=== PATIENT | female | born 1975 | race Caucasian/White ===

== ENCOUNTER 2018-07-02 18:37 | Emergency (ER) | payer OTHER ==
[~2018-07-02] VITALS: Ht 170.2 cm; Wt 83.9 kg
[~2018-07-02 18:37] MED LIST: ASPIRIN325; ASPRIMOX 325 M325 MG; FISH OIL 1,001000 M1; FISHOIL; LISINOPRIL; MULTIVITAMINS; MULTIVITAMINS1 EAC7; NAPROSYN250 MG PO; NORCO 5-325 TA1 EACH PO; PRAVACHOL; PRAVASTATIN; PREVASTATIN; PRINIVIL5 MG; ZPAK PO
[2018-07-02] MEDS ORDERED: ASPIR 8181 MG PO (18:51)
[2018-07-02] MEDS ORDERED: LOVASTATIN 20 M20 MG PO (18:51)
[2018-07-02 20:35] LABS: ABSOLUTE EOSINOPHILS 0.1 thou/uL (0.0-0.7); ABSOLUTE LYMPHOCYTES 1.8 thou/uL (0.8-5.3); ABSOLUTE MONOCYTES 0.6 thou/uL (0.0-1.2); ABSOLUTE NEUTROPHILS 7.9 thou/uL (1.6-8.1); BASOPHILS 0.3 %; EOSINOPHILS 0.6 %; HEMATOCRIT 41.5 % (37.0-47.0); HEMOGLOBIN 14.1 gm/dL (12.0-15.0); LYMPHOCYTES 17.3 %; MCH 31.2 pg (26.0-34.0); MCHC 34.1 g/dL (28.0-37.0); MCV 91.7 fL (80.0-100.0); MONOCYTES 6.1 %; MPV 9.2 fl. (7.2-11.1); NUCLEATED RBCS 0 /100WBC; PLATELET COUNT* 188 thou/uL (150-400); POLYS 75.7 %; RBC 4.53 mil/uL (4.20-5.00); RDW-CV 12.5 % (10.5-14.5); WBC 10.5 thou/uL (4.0-11.0)
[2018-07-02 20:45] LABS: APTT 24.9 Seconds (25.0-31.3); PROTIME 10.2 Seconds (9.20-11.50)
[2018-07-02 20:53] LABS: CALCIUM 8.6 mg/dL (8.5-10.1); CREATININE 0.9 mg/dL (0.6-1.3); POTASSIUM 3.8 mmol/L (3.5-5.1)
[2018-07-02 21:05] LABS: ALBUMIN 3.5 g/dL (3.4-5.0); TOTAL BILIRUBIN 0.2 mg/dL (<0.1-1.0); TOTAL PROTEIN 7.2 g/dL (6.4-8.2)
[2018-07-02] MEDS ORDERED: MEDROXYPROGESTE10 MG PO (23:17)
[2018-07-02 23:34] VITALS: BP 132/65
== END 2018-07-02 23:35 | disposition home or self-care (01) ==
LOC: M.ERS 18:37
PROVIDERS: Nurse Practitioner Family
DX: N83.291 Other ovarian cyst, right side (principal); D25.1 Intramural leiomyoma of uterus; F41.0 Panic disorder [episodic paroxysmal anxiety]; Z90.49 Acquired absence of other specified parts of digestive tract; Z88.6 Allergy status to analgesic agent

== ENCOUNTER 2019-11-30 12:24 | Inpatient (IN) | payer OTHER ==
[~2019-11-30] VITALS: Ht 170.2 cm; Wt 69.9 kg
[~2019-11-30 12:24] MED LIST changes: +ASPIR 8181 MG PO; +LOVASTATIN 20 M20 MG PO; +MEDROXYPROGESTE10 MG PO
[2019-11-30 12:37] VITALS: BP 150/84
[2019-11-30 13:00] LABS: ABSOLUTE EOSINOPHILS 0.1 thou/uL (0.0-0.7); ABSOLUTE LYMPHOCYTES 1.4 thou/uL (0.8-5.3); ABSOLUTE MONOCYTES 0.5 thou/uL (0.0-1.2); ABSOLUTE NEUTROPHILS 7.6 thou/uL (1.6-8.1); BASOPHILS 0.4 %; EOSINOPHILS 0.6 %; HEMATOCRIT 44.3 % (37.0-47.0); HEMOGLOBIN 15.4 gm/dL (12.0-15.0); LYMPHOCYTES 14.8 %; MCH 31.9 pg (26.0-34.0); MCHC 34.7 g/dL (28.0-37.0); MONOCYTES 5.2 %; NUCLEATED RBCS 0 /100WBC; PLATELET COUNT* 182 thou/uL (150-400); RBC 4.81 mil/uL (4.20-5.00); RDW-CV 12.9 % (10.5-14.5); WBC 9.7 thou/uL (4.0-11.0)
[2019-11-30 13:09] LABS: CALCIUM 8.3 mg/dL (8.5-10.1); CREATININE 0.9 mg/dL (0.6-1.3); POTASSIUM 3.9 mmol/L (3.5-5.1)
[2019-11-30 13:20] LABS: ALBUMIN 3.3 g/dL (3.4-5.0); TOTAL BILIRUBIN 0.4 mg/dL (<0.1-1.0); TOTAL PROTEIN 7.1 g/dL (6.4-8.2)
[2019-11-30 18:17] VITALS: BP 126/86
[2019-11-30 19:50] VITALS: BP 103/62
[2019-12-01] VITALS (15 sets, daily range): BP systolic 99–143; BP diastolic 57–70
[2019-12-01 05:30] LABS: HEMATOCRIT 39.9 % (37.0-47.0); HEMOGLOBIN 13.6 gm/dL (12.0-15.0); MCH 31.9 pg (26.0-34.0); MCV 93.8 fL (80.0-100.0); MPV 9.2 fl. (7.2-11.1); RBC 4.26 mil/uL (4.20-5.00); RDW-CV 13.1 % (10.5-14.5)
[2019-12-01 05:34] LABS: ANION GAP 7 mmol/L (7-16); BUN 16 mg/dL (7-18); CHLORIDE 109 mmol/L (98-107); CO2 25 mmol/L (21-32); CREATININE 0.9 mg/dL (0.6-1.3); GLUCOSE 83 mg/dL (70-99); POTASSIUM 3.8 mmol/L (3.5-5.1); SODIUM 141 mmol/L (136-145)
[2019-12-01 05:44] LABS: CHOLESTEROL 130 mg/dL (<200); HDL CHOLESTEROL 49 mg/dL (>40); LDL CHOLESTEROL 65 mg/dL (<100); MAGNESIUM 2.1 mg/dL (1.8-2.4); TC:HDL 2.7 Ratio (Not establshd); TRIGLYCERIDE 82 mg/dL (<150); VLDL 16 mg/dL (<40)
[2019-12-01 05:48] LABS: SERUM ASSESSMENT Clear
--- NOTE | 2019-12-01 07:38 | NUR ---
PT CARE ASSUMED AT 1930. SAT MAINTAINED IN O2. ALERT AND ORIENTED X4. CALL LIGHT WITHIN REACH AND BED IN LOW POSITION. CALL LIGHT WITHIN REACH AND BED IN LOW POSITION. HOURLY ROUNDING DONE FOR PT SAFETY.
--- NOTE | 2019-12-01 12:13 | EKG ---
[place] [address] ELECTROCARDIOGRAM REPORT Name: MASOUD KRUEGER Room: [place] [address] ADM IN [facility].#: [id number] Admission: 11/30/19 Attend Phys: Remy Sewell, Discharge: Date of : 73 Date of Service: 11/30/19 1233 Report #: [id number] THIS REPORT FOR: //name// [facility] ED Test Date: 2019-11-30 Test Time: 12:33:48 Pat Name: MASOUD KRUEGER Department: Room: [facility] Gender: F Licensed Nuclear Operator: BERNARDO : 1975 Requested By: Summer Coates Order Number: [id number] MD: Celestino Camp Measurements Intervals [place] Rate: 70 P: 67 [place]: 140 QRS: 52 QRSD: 100 T: 61 QT: 392 QTc: 423 Interpretive Statements Sinus rhythm Low voltage, precordial leads Consider anterolateral infarct Compared to ECG 07/12/2011 09:25:51 Low QRS voltage now present Sinus tachycardia no longer present Electronically Signed On 12-01-2019 12:11:21 CDT by Celestino Camp [email or web address] <ELECTRONICALLY SIGNED> By: Celestino Camp MD, [facility] 12/01/19 1211 1233 1233 Celestino Camp MD, [facility] /EPI
--- NOTE | 2019-12-01 12:15 | EKG ---
[place] [address] ELECTROCARDIOGRAM REPORT Name: MASOUD KRUEGER Room: [place] [address] ADM IN [facility]#: [id number] Admission: 11/30/19 Attend Phys: Remy Sewell, Discharge: Date of : 73 Date of Service: 11/30/19 1534 Report #: [id number] THIS REPORT FOR: //name// [facility] ED Test Date: 2019-11-30 Test Time: 15:34:32 Pat Name: MASOUD KRUEGER Department: Room: [facility] Gender: F Sheriff: CRISTIAN : 1975 Requested By: Summer Coates Order Number: [id number] MD: Celestino Camp Measurements Intervals [place] Rate: 52 P: 69 [place]: 152 QRS: 64 QRSD: 106 T: 64 QT: 468 QTc: 436 Interpretive Statements Sinus bradycardia Anterior infarct, old Electronically Signed On 12-01-2019 12:12:54 CDT by Celestino Camp [email or web address] <ELECTRONICALLY SIGNED> By: Celestino Camp MD, [facility] 12/01/19 1212 1534 1534 Celestino Camp MD, [facility] /EPI
--- NOTE | 2019-12-01 13:39 | CARD ---
[address] [address] CARDIAC CATH REPORT Name: MASOUD KRUEGER Room: [address] IN [facility]#: [id number] Admission: 11/30/19 Attend Phys: Remy Sewell MD Discharge: Date of : 73 Report #: [id number] THIS REPORT FOR: //name// cc: Renny Chan DO Renny Chan DO ~ APPROVED REPORT Study performed: 12/01/2019 09:46:30 Patient Details Patient Status: In-Patient Room #: 227 The patient is a 43 year-old female Event Personnel Sam Caballero RTR Monitor, Aby Patel RTR ScrubOscar Sujita RN RN, Celestino Camp Exhibitions And Collections Manager Procedures Performed Left Heart Cath w/or w/o Coronaries [id number] [facility] w/wo Plasty Single RCA [id number] Indication Abnormal ECG, Non-STEMI , Chest pain Risk Factors Hypercholesterolemia, Tobacco History () Previous Procedures/Diagnoses Previous PCI, Previous OH Admission/Lab Medications/Medications given during procedure Glycoprotein IllbIlla Inhibitors, Heparin Unfract., Fentanyl IV 25 mcg, Midazolam (Versed) IV 2 mg, Lidocaine Subcut 5 ml, Nitroglycerin IA 200 mcg, Verapamil IA 2.5 mg, Heparin IV 5000 units, Midazolam (Versed) IV 1 mg, Aggrastat Unknown 7 ml, Effient PO 60 mg Procedure Narrative The patient was brought urgently to the Cardiac Catheterization Laboratory and was prepped and draped in a sterile manner. The right wrist was infiltrated with 2% Lidocaine subcutaneous anesthesia. A Slender Glidesheath sheath was inserted into the right radial artery. Coronary angiography was performed using coronary diagnostic catheters. The right coronary system was accessed and visualized with a Diagnostic JR4 6Fr catheter. The left [place] [address] CARDIAC CATH REPORT Name: MASOUD KRUEGER Room: [address]#: [id number] Admission: 11/30/19 Attend Phys: Remy Sewell MD Discharge: Date of : 73 Report #: [id number] and visualized with a Diagnostic JL4 6Fr catheter. The left ventricle was accessed and visualized with a Diagnostic Pigtail St catheter. Left ventricular/Aortic Valve gradient assessed via catheter pullback. Left ventriculogram was performed in MURCIA projection. Closure device was deployed with a 6 Fr vascband. The patient tolerated the procedure well and there were no complications associated with the procedure. There was no hematoma. Intraoperative Conscious Sedation Sedation start time: 1055 Case end Time: 1138 Fentanyl 50 mcg Versed 3 mg Fluoro Time: 5.8 minutes Dose: DAP 33751 cGycm2 710.24 mGy Contrast Type and Amount: Omnipaque 120 ml Coronary Angiography The patient's coronary anatomy is right dominant. Diagnostic Cath Left Main 0% stenosis LAD stent in mid LAD had 40% restenosis. Apical LAD was a small vessel with a small lumen Circumflex 0% stenosis OM3 stent noted with 0% restenosis Right Coronary 100% proximal occlusion with thrombus noted. Filled retrograd by collaterals from the left coronary artery. Left Ventriculography The left ventricular ejection fraction is estimated to be 30-35%. Left ventricular wall motion abnormalities are present. There is no mitral insufficiency. mild hypokinesis noted of the inferior wall, and akinesis noted of the distal anteroapical wall Hemodynamics The aortic pressure is 101/63 mmHg with a mean of 79 mmHg. The left ventricular pressure is 106/5 mmHg with a mean of mmHg. The left ventricular end diastolic pressure is 9 mmHg. There was no gradient across the aortic valve upon pullback. Pullback from the left ventricle to the aorta revealed no gradient across the aortic valve. PCI Technique Lesion Anticoagulation was achieved with Heparin. bolus of iv aggrastat given Percutaneous coronary [place] [address] CARDIAC CATH REPORT Name: MASOUD KRUEGER Room: [address] IN [facility]#: [id number] Admission: 11/30/19 Attend Phys: Remy Sewell MD Discharge: Date of : 73 Report #: [id number] proximal right coronary artery. The lesion stenosis prior to intervention was 100% with ANNE 0 flow. A 6FR JCR 4 100CM Guide Catheter was used to engage the Right ostium. A BMW 190cm Interventional Guidewire was used to cross the lesion. BALLOON DILATION A Balloon catheter Euphora SC 2.5x10 was inserted and inflated up to 10.00atm for 8seconds. Repeat angiography revealed the following post-dilatation results: 50% stenosis. Additional Inflation: 18.00atm for 13seconds. STENT DEPLOYMENT A drug-eluting stent Clinton RX Stent 3.0X18mm was inserted and inflated up to 15.00atm for 19seconds. Repeat angiography revealed the following post-stent deployment results: 0% stenosis. Additional Inflation: 18.00atm for 16seconds. Final angiography reveals 0 % stenosis with ANNE 3 flow. Conclusion 1. 40% restenosis noted of stent in the mid LAD, and 0% restenosis of stent in the 3rd marginal branch of the circumflex. 2. 100% recent occlusion of the proximal rca, and filled retrograde by collaterals from the left coronary artery. 3. LVEF 30-35% 4. successful placement of a drug eluting stent in the proximal rca Recommendations Cardiac Rehabilitation Referral Aggressive Medical Therapy Medications Administered Prasugrel <ELECTRONICALLY SIGNED> By: Celestino Camp MD, [facility] 12/01/19 1337 1337 1337Daana Camp MD, FAC /INF
--- NOTE | 2019-12-01 15:53 | NUR ---
ASSUMED CARE OF PATIENT THIS AM AT 0730. PATIENT IS ALERT AND ORIENTED X 4. SHE DENIES CHEST PAIN AND SOA. HEPARIN GTT WAS INFUSING FROM PYROTECHNIC MIXER. DR ZULETA IN TO ROUND AND CATH ORDERS WERE WRITTEN. IV FLUIDS STARTEDCONSENT SIGNED FOR CARDIAC CATH. PATIENT TAKEN TO THE RECOVERY AUDITOR PER BED. PATIENT RETURNED TO ROOM AT 1215. TELE MONITOR RESUMED. TELE SHOWS SR TO SB. POST CATH ASSESSMENTS WITH VITAL SIGNS DONE. DIET RESUMED. PATIENT C/O A LE THIS AFTERNOON. SHE WAS GIVEN TYLENOL PO X 1. PATIENT IS RESTING AT THIS TIME. WILL CONTINUE TO MONITOR.
[2019-12-01 21:04] LABS: TROPONIN-I LEVEL 9.91 ng/mL (<0.06)
[2019-12-02 00:10] VITALS: BP 96/51
[2019-12-02 04:05] VITALS: BP 103/57
--- NOTE | 2019-12-02 05:00 | NUR ---
PT CARE ASSUMED AT 1930. SAT MAINTAINED IN RA. ALERT AND ORIENTED X4. C/O PAIN, MEDICATION GIVEN PER EMAR. CALL LIGHT WITHIN REACH AND BED IN LOW POSITION. HOURLY ROUNDING DONE FOR PT SAFETY.
[2019-12-02 05:06] LABS: HEMATOCRIT 39.9 % (37.0-47.0); HEMOGLOBIN 13.7 gm/dL (12.0-15.0); MCH 31.8 pg (26.0-34.0); MCHC 34.3 g/dL (28.0-37.0); MCV 92.9 fL (80.0-100.0); MPV 8.9 fl. (7.2-11.1); RBC 4.29 mil/uL (4.20-5.00); RDW-CV 12.7 % (10.5-14.5)
[2019-12-02 05:30] LABS: CALCIUM 7.9 mg/dL (8.5-10.1); CREATININE 0.8 mg/dL (0.6-1.3); POTASSIUM 4.1 mmol/L (3.5-5.1)
[2019-12-02 05:34] LABS: TROPONIN-I LEVEL 2.59 ng/mL (<0.06)
[2019-12-02 08:00] VITALS: BP 96/43
[2019-12-02 11:36] VITALS: BP 96/43
[2019-12-02] MEDS ORDERED: COZAAR 25 MG TA25 M1 PO (11:40)
[2019-12-02] MEDS ORDERED: LIPITOR40 MG PO (11:42)
[2019-12-02] MEDS ORDERED: EFFIENT10 MG PO (11:43)
[2019-12-02] MEDS ORDERED: NITROGLYCERIN0.4 MG SUBLING (11:44)
[2019-12-02 11:50] VITALS: BP 96/43
--- NOTE | 2019-12-02 12:51 | CON ---
[address] [address] CONSULTATION Name: MASOUD KRUEGER Room: [address] IN [facility]#: [id number] Admission: 11/30/19 Attend Phys: Remy Sewell MD Discharge: Date of : 73 Report #: [id number] THIS REPORT FOR: //name// cc: Renny Chan Bradley L. DO ~ THIS REPORT FOR: //name// CC: Renny Sewell DATE OF SERVICE: 12/01/2019 CARDIOLOGY CONSULTATION HISTORY OF PRESENT ILLNESS: The patient is a 43-year-old white female who I was asked to see in the hospital today after she had evidenced of a non-STEMI. The patient initially presented in 2008 with acute coronary syndrome. I placed 2 coronary stents at that time. She has done well since that time. She apparently had a stress test years ago. Recently when she exerts herself, she does develop a discomfort in her chest that goes away. However, yesterday she is at work after walking, she felt a discomfort in her chest, went into her jaw, she became short of breath. The pain persisted. Her brought her to the Emergency Room. She was given aspirin and nitroglycerin. The pain eventually resolved. I was asked to see her for further evaluation and treatment. She denies exertional dyspnea. She does note occasional palpitation, no syncope. She has had no recent fever, cough, blood in stool, trauma to her chest. She denied the pain being related to food. The pain was worse if she took a deep breath. PAST MEDICAL HISTORY: She is on no surgical procedure. Her last menstrual period was last month. She has a history of hyperlipidemia. No history of diabetes or hypertension. CURRENT MEDICATIONS: Include lisinopril, lovastatin, aspirin, vitamins. ALLERGIES: SHE HAS PREVIOUS REACTION TO MORPHINE. FAMILY HISTORY: Father had stent. SOCIAL HISTORY: She is . She and her live in [facility]. She quit smoking in 2008. No alcohol abuse. REVIEW OF SYSTEMS: She has a history of obesity, previously weighed 260 pounds, she currently weighs 150 pounds. She has lost a lot of weight on dieting. No history of stroke, asthma, liver disease, peptic ulcer disease, kidney disease or cancer. She has a history of herpes infection of the [place] [address] CONSULTATION Name: MASOUD KRUEGER Marissa Room: [address] IN [facility]#: [id number] Admission: 11/30/19 Attend Phys: Remy Sewell MD Discharge: Date of : 73 Report #: [id number] depression as a child and saw a psychiatrist. PHYSICAL EXAMINATION: GENERAL: Revealed a middle-aged female, who appeared in no distress. VITAL SIGNS: She had a blood pressure of 140/70, pulse 60. She is afebrile. HEENT: She was anicteric. Conjunctivae are pink. Mucous membranes moist. NECK: Veins nondistended. No carotid bruits. Neck supple. CHEST: Clear to auscultation. CARDIAC: Regular rate and rhythm, no murmur. ABDOMEN: Soft. EXTREMITIES: Had no edema. Posterior tibial pulse 2+ bilaterally. SKIN: Cool and dry. NEUROLOGIC: Nonfocal. IMAGING: Her ECG shows a sinus bradycardia, evidence of previous anterior infarction. LABORATORY DATA: Sodium 141, potassium 3.8, BUN 16, creatinine 0.9, glucose 83. Liver function studies were normal. Her troponin 0.06 on admission, this morning, it is 8.31. BNP 722. Cholesterol 130, triglyceride 82, HDL 49, LDL 65. TSH in 2019 was 2.1. Her white blood cell count is 7.0, hemoglobin 13.6. Her chest x-ray on admission showed normal heart size, clear lung chatterjee. IMPRESSION AND RECOMMENDATIONS: 1. Non-ST elevation myocardial infarction. Recommend cardiac catheterization. 2. Previous stent. The patient is on an aspirin a day. 3. History of cardiomyopathy. The patient is on an MAGNUS inhibitor now. 4. Hyperlipidemia. The patient is on a statin drug. 5. Previous tobacco abuse. The patient quit smoking in 2008. <ELECTRONICALLY SIGNED> By: Celestino Camp MD, [facility] 12/02/19 1251 0921 1018Daana Camp MD, FAC /nt
--- NOTE | 2019-12-02 13:32 | NUR ---
VSS, SB ON TELE, ROOM AIR, UP AD CASSIE, RIGHT RADIAL SITE- DRESSING CLEAN, DRY & INTACT, HOURLY ROUNDING PERFORMED, POSSESSIONS AND CALL LIGHT WITHIN REACH. REC DISCHARGE ORDERS, REVIEWED WITH PATIENT, TELE MONITOR AND IV REMOVED WITHOUT COMPLICATION, SCRIPTS AND CARE NOTES GIVEN, PATIENT TAKEN IN WHEELCHAIR TO FRONT DOOR BY NURSING STAFF. PICKED UP IN FAMILY CAR BY DAUGHTER.
--- NOTE | 2019-12-02 15:43 | EKG ---
[place] [address] ELECTROCARDIOGRAM REPORT Name: MASOUD KRUEGER Room: [place] [address] DIS IN ..#: [id number] Admission: 11/30/19 Attend Phys: Remy Sewell, Discharge: 12/02/19 Date of : 73 Date of Service: 12/01/19 1337 Report #: [id number] THIS REPORT FOR: //name// [facility] Test Date: 2019-12-01 Test Time: 13:37:32 Pat Name: MASOUD KRUEGER Department: Room: [place] [address] Gender: F Desk Top Publisher: [facility] : 1975 Requested By: Celestino Camp Order Number: [id number] Ryan MD: Magdaleno Tang Measurements Intervals [place] Rate: 61 P: 69 [place]: 149 QRS: 84 QRSD: 108 T: 89 QT: 432 QTc: 435 Interpretive Statements Sinus rhythm Anteroseptal infarct, age indeterminate Compared to ECG 11/30/2019 15:34:32 Sinus bradycardia no longer present Myocardial infarct finding still present Electronically Signed On 12-02-2019 15:41:07 CDT by Magdaleno Tang [email or web address] <ELECTRONICALLY SIGNED> By: Mgadaleno Tang MD, [facility] 12/02/19 1541 1337 1337 Magdaleno Tang MD, [facility] /EPI
--- NOTE | 2019-12-02 15:51 | EKG ---
[place] [address] ELECTROCARDIOGRAM REPORT Name: MASOUD KRUEGER Room: [place] [address] DIS IN ..#: [id number] Admission: 11/30/19 Attend Phys: Remy Sewell, Discharge: 12/02/19 Date of : 73 Date of Service: 12/02/19 0648 Report #: [id number] THIS REPORT FOR: //name// [facility] Test Date: 2019-12-02 Test Time: 06:48:19 Pat Name: MASOUD KRUEGER Department: Room: [place] [address] Gender: F Director Music: MARIA R01 : 1975 Requested By: Celestino Camp Order Number: [id number] Ryan MD: Magdaleno Tang Measurements Intervals [place] Rate: 50 P: 66 [place]: 149 QRS: 51 QRSD: 109 T: 87 QT: 452 QTc: 413 Interpretive Statements Sinus rhythm possible anteroseptal scar Borderline low voltage, extremity leads Nonspecific T abnrm, anterolateral leads Compared to ECG 11/30/2019 15:34:32 Sinus bradycardia no longer present Electronically Signed On 12-02-2019 15:48:53 CDT by Magdaleno Tang [email or web address] <ELECTRONICALLY SIGNED> By: Magdaleno Tang MD, [facility] 12/02/19 1548 0648 0648 Magdaleno Tang MD, [facility] /EPI
== END 2019-12-02 12:28 | disposition home or self-care (01) | DRG 247 ==
LOC: M.ERS 12:24 → M.2W 16:25 → M.TBA-ER 16:25 → M.2W 18:47
PROVIDERS: Internal Medicine Cardiovascular Disease; Personal Emergency Response Attendant; ADMIT Internal Medicine; ATTEND Internal Medicine
PROC: 027034Z Dilation of Coronary Artery, One Artery with Drug-eluting Intraluminal Device, Percutaneous Approach (ICD-10-PCS; principal; 2019-12-01)
PROC: 3E033PZ Introduction of Platelet Inhibitor into Peripheral Vein, Percutaneous Approach (ICD-10-PCS; principal; 2019-12-01)
PROC: B2151ZZ Fluoroscopy of Left Heart using Low Osmolar Contrast (ICD-10-PCS; principal; 2019-12-01)
PROC: 4A023N7 Measurement of Cardiac Sampling and Pressure, Left Heart, Percutaneous Approach (ICD-10-PCS; principal; 2019-12-01)
PROC: B2111ZZ Fluoroscopy of Multiple Coronary Arteries using Low Osmolar Contrast (ICD-10-PCS; principal; 2019-12-01)
DX: I21.4 Non-ST elevation (NSTEMI) myocardial infarction (principal); I50.22 Chronic systolic (congestive) heart failure; T82.855A Stenosis of coronary artery stent, initial encounter; E78.5 Hyperlipidemia, unspecified; M54.9 Dorsalgia, unspecified; I24.9 Acute ischemic heart disease, unspecified; F12.90 Cannabis use, unspecified, uncomplicated; F41.1 Generalized anxiety disorder; I25.118 Atherosclerotic heart disease of native coronary artery with other forms of angina pectoris; G89.29 Other chronic pain; I25.5 Ischemic cardiomyopathy; I25.2 Old myocardial infarction; Z95.5 Presence of coronary angioplasty implant and graft; Z90.49 Acquired absence of other specified parts of digestive tract; Z88.5 Allergy status to narcotic agent; Z79.82 Long term (current) use of aspirin; Z79.899 Other long term (current) drug therapy; Z87.891 Personal history of nicotine dependence; Z82.49 Family history of ischemic heart disease and other diseases of the circulatory system; Y84.0 Cardiac catheterization as the cause of abnormal reaction of the patient, or of later complication, without mention of misadventure at the time of the procedure; Y92.89 Other specified places as the place of occurrence of the external cause

== ENCOUNTER 2020-01-04 09:24 | Inpatient (IN) | payer OTHER ==
[~2020-01-04] VITALS: Ht 170.2 cm; Wt 64.9 kg
[~2020-01-04 09:24] MED LIST changes: +COZAAR 25 MG TA25 M1 PO; +EFFIENT10 MG PO; +LIPITOR40 MG PO; -MULTIVITAMINS1 EAC7; +MULTIVITAMINS1 EAC7 PO; +NITROGLYCERIN0.4 MG SUBLING
[2020-01-04 09:26] VITALS: BP 132/73
[2020-01-04 09:44] LABS: ABSOLUTE EOSINOPHILS 0.1 thou/uL (0.0-0.7); ABSOLUTE LYMPHOCYTES 1.5 thou/uL (0.8-5.3); ABSOLUTE MONOCYTES 0.3 thou/uL (0.0-1.2); ABSOLUTE NEUTROPHILS 3.8 thou/uL (1.6-8.1); BASOPHILS 0.7 %; HEMATOCRIT 40.1 % (37.0-47.0); HEMOGLOBIN 13.9 gm/dL (12.0-15.0); LYMPHOCYTES 25.9 %; MCH 32.1 pg (26.0-34.0); MCHC 34.6 g/dL (28.0-37.0); MCV 92.6 fL (80.0-100.0); MONOCYTES 5.1 %; MPV 8.8 fl. (7.2-11.1); NUCLEATED RBCS 0 /100WBC; PLATELET COUNT* 193 thou/uL (150-400); POLYS 66.3 %; RBC 4.33 mil/uL (4.20-5.00); RDW-CV 12.5 % (10.5-14.5); WBC 5.7 thou/uL (4.0-11.0)
[2020-01-04 09:54] LABS: CALCIUM 8.1 mg/dL (8.5-10.1); POTASSIUM 3.6 mmol/L (3.5-5.1)
[2020-01-04 09:55] LABS: APTT 23.8 Seconds (25.0-31.3); PROTIME 10.3 Seconds (9.20-11.50)
[2020-01-04 10:08] LABS: ALBUMIN 3.1 g/dL (3.4-5.0); CK-MB MASS 1.6 ng/mL (<0.5-3.6); TOTAL BILIRUBIN 0.3 mg/dL (<0.1-1.0); TOTAL PROTEIN 6.5 g/dL (6.4-8.2)
[2020-01-04 10:51] VITALS: BP 132/70
[2020-01-04 11:00] VITALS: BP 115/66
[2020-01-04 16:32] VITALS: BP 108/59
--- NOTE | 2020-01-04 18:49 | NUR ---
PT ARRIVED ON UNIT AROUND 1100, VS CHARTED, SB ON TELE, ROOM AIR, UP AD CASSIE, ADMISSION COMPLETED, HEPARIN DRIP, HOURLY ROUNDING PERFORMED, POSSESSIONS AND CALL LIGHT WITHIN REACH.
[2020-01-04 20:00] VITALS: BP 106/44
[2020-01-05] VITALS: BP 120/66
[2020-01-05 04:32] VITALS: BP 103/56
[2020-01-05 04:42] LABS: HEMATOCRIT 37.3 % (37.0-47.0); HEMOGLOBIN 12.8 gm/dL (12.0-15.0); MCHC 34.4 g/dL (28.0-37.0); MCV 93.2 fL (80.0-100.0); MPV 9.3 fl. (7.2-11.1); RDW-CV 12.4 % (10.5-14.5); WBC 6.5 thou/uL (4.0-11.0)
--- NOTE | 2020-01-05 04:49 | NUR ---
ASSUMED CARE OF PT AFTER REPORT AT 1930. PT A&OX4. VSS. PHYSICAL ASSESSMENT COMPLETED AND CHARTED. PT ON RA. PT TRACING SR/SB/ST ON TELE. PT UPADLIB TO RESTROOM. PT DENIES ANY PAIN. CALL LIGHT WITHIN REACH.
[2020-01-05 05:03] LABS: ALBUMIN 2.7 g/dL (3.4-5.0); CREATININE 0.8 mg/dL (0.6-1.3); MAGNESIUM 2.2 mg/dL (1.8-2.4); PHOSPHORUS* 3.2 mg/dL (2.5-4.9); POTASSIUM 3.8 mmol/L (3.5-5.1)
[2020-01-05 08:16] VITALS: BP 105/58
[2020-01-05 10:07] LABS: AMP/METHAMP Negative (Negative); BARBITURATES Negative (Negative); BENZODIAZEPINES Negative (Negative); COCAINE Negative (Negative); METHADONE Negative (Negative); OPIATES Negative (Negative); PCP Negative (Negative); THC Negative (Negative)
--- NOTE | 2020-01-05 10:17 | NUR ---
ASSUMED PT CARE AT 0730, PT AOX4 AND HAS NO C/O PAIN OR SHORTNESS OF BREATH. PT CURRENTLY HAS HEPARIN DRIP RUNNING AT 1046 UNITS/HR. PT HAS SO IN ROOM W/ HER, HE WAS UPDATED ON POC. PT REFUSED PEPCID THIS AM BECAUSE SHE STATES SHE DOESN'T NEED IT. PT GOAL IS TO REMAIN FREE FROM CHEST PAIN AND COLLECT URINE SAMPLE. AM ASSESSMENT CHARTED, MEDS PER MAR, HOURLY ROUNDING OBSERVED, PT UP AD CASSIE, WILL CONTINUE POC.
--- NOTE | 2020-01-05 12:35 | EKG ---
[place] [address] ELECTROCARDIOGRAM REPORT Name: MILADMARGOREBECCAMASOUD Marissa Room: [address] ADM IN .R.#: [id number] Admission: 01/04/20 Attend Phys: Kat hays Sa Discharge: Date of : 73 Date of Service: 01/04/20 0928 Report #: [id number] THIS REPORT FOR: //name// [facility] ED Test Date: 2020-01-04 Test Time: 09:28:00 Pat Name: MASOUD KRUEGER Department: Room: [facility] Gender: F Clinical Neuropsychologist: : 1975 Requested By: Mundo Montero Order Number: [id number] MD: Jason Quintanilla Measurements Intervals [place] Rate: 69 P: 65 [place]: 146 QRS: 59 QRSD: 103 T: 63 QT: 414 QTc: 444 Interpretive Statements Sinus rhythm Borderline low voltage, extremity leads Compared to ECG 12/02/2019 06:48:19 No significant changes Electronically Signed On 01-05-2020 12:35:16 CDT by Jason Quintanilla [email or web address] <ELECTRONICALLY SIGNED> By: Jason Quintanilla MD, [facility] 01/05/20 1235 Jason Quintanilla MD, [facility] /EPI
[2020-01-05 12:58] VITALS: BP 114/68
[2020-01-05 16:47] VITALS: BP 102/64
--- NOTE | 2020-01-05 17:25 | NUR ---
NO ACUTE CHANGES THROUGHOUT SHIFT, PT HAD NO C/O PAIN OR SHORTNESS OF BREATH. HEPARIN DRIP ADJUSTED PER HEPARIN PROTOCOL AND BOLUS GIVEN, SEE CHART. PT HAD IN ROOM MOST OF DAY, PT AMBULATED THE HALLS AND WORKED W/ CARDIOLOGY ON POC, SEE NOTES. MEDS PER AUG, HOURLY ROUNDING OBSERVED, CALL LIGHT W/IN REACH, WILL CONTINUE POC.
[2020-01-05 20:00] VITALS: BP 114/68
[2020-01-06] VITALS (19 sets, daily range): BP systolic 87–129; BP diastolic 48–74
--- NOTE | 2020-01-06 08:13 | NUR ---
ASSUMED CARE OF PT AFTER REPORT AT 1930. PT A&OX4. VSS. PHYSICAL ASSESSMENT COMPLETED AND CHARTED. PT ON RA. PT TRACING SB ON TELE. PT UPADLIB TO RESTROOM. PT DENIES ANY PAIN. MAINTAINED ON HEPARIN DRIP-TITRATED PER PROTOCOL. PT INSTRUCTED NPO POST MIDNIGHT FOR CARDIAC CATH TODAY. COMMUNICATES UNDERSTANDING. CALL LIGHT WITHIN REACH.
--- NOTE | 2020-01-06 10:03 | EKG ---
[place] [address] ELECTROCARDIOGRAM REPORT Name: MASOUD KRUEGER Room: [address] ADM IN M.R.#: [id number] Admission: 01/04/20 Attend Phys: Kat hays Sa Discharge: Date of : 73 Date of Service: 01/05/20 0534 Report #: [id number] THIS REPORT FOR: //name// [facility] Test Date: 2020-01-05 Test Time: 05:34:45 Pat Name: MASOUD KRUEGER Department: Room: [address] Gender: F Decorative Greens Cutter: GIOVANNA : 1975 Requested By: Kat Warner Order Number: [id number] Ryan MD: Celestino Camp Measurements Intervals [place] Rate: 49 P: 60 [place]: 145 QRS: 51 QRSD: 99 T: 73 QT: 457 QTc: 413 Interpretive Statements Sinus bradycardia nonspecific t wave changes Low voltage, precordial leads Compared to ECG 01/04/2020 09:28:00 Sinus rhythm no longer present Electronically Signed On 01-06-2020 10:02:59 CDT by Celestino Camp [email or web address] <ELECTRONICALLY SIGNED> By: Celestino Camp MD, [facility] 01/06/20 1002 0534 0534 Celestino Camp MD, [facility] /EPI
[2020-01-06] MEDS ORDERED: ATIVAN0.5 M1 PO (12:17)
--- NOTE | 2020-01-06 13:32 | NUR ---
ASSUMED PT CARE AT 0730, PT RESTING IN BED, AOX4 AND HAS BEEN NPO SINCE MIDNIGHT. PT WORKED W/ CARDIOLOGY THIS AM AND HAS HEART CATH SCHEDULED FOR TODAY. PT UP AD CASSIE, CURRENTLY IN ROOM, PT GOAL IS TO COMPLETE HEART CATH AND WORK ON POSSIBLE DC TODAY OR TOMORROW. AM ASSESSMENT CHARTED, MEDS PER AUG, HOURLY ROUNDING OBSERVED, CALL LIGHT W/IN REACH, WILL CONTINUE POC.
--- NOTE | 2020-01-06 17:25 | CARD ---
[address] [address] CARDIAC CATH REPORT Name: MASOUD KRUEGER Room: [address] IN [facility]#: [id number] Admission: 01/04/20 Attend Phys: Kat carr [place] Discharge: Date of : 73 Report #: [id number] THIS REPORT FOR: //name// cc: Renny Chan DO Renny Chan DO ~ APPROVED REPORT Study performed: 01/06/2020 14:25:50 Patient Details Patient Status: In-Patient Room #: The patient is a 44 year-old female Event Personnel Celestino Camp Neon Sign Mechanic, Maxine Avendano RN RN, Beverly Butcher RTR Scrub, Aby Patel RTR Monitor Procedures Performed Art Access - R radial artery Left Heart Cath w/or w/o Coronaries NEAL Place w/wo Plasty Single RAMUS Inter Hemostasis with Hemoband Indication Non-STEMI , Chest pain Risk Factors Hypercholesterolemia, Coronary Artery Disease, Tobacco History () Previous Procedures/Diagnoses Previous PCI Admission/Lab Medications/Medications given during procedure Heparin Unfract., Oxygen Nasal cannula 2 l per min, 0.9% Sodium Chloride IV 125 ml per hr, Fentanyl IV 25 mcg, Midazolam (Versed) IV 2 mg, Lidocaine Subcut 5 ml, Nitroglycerin IA 200 mcg, Verapamil IA 2.5 mg, Midazolam (Versed) IV 1 mg, Heparin IV 6000 units, Heparin IV 2000 units, Nitroglycerin IC 150 mcg, Heparin IV 1000 units, Nitroglycerin IA 200 mcg, Verapamil 2.5 mg Procedure Narrative The patient was brought electively to the Cardiac Catheterization Laboratory and was prepped and draped in a sterile manner. The right wrist was infiltrated with 2% Lidocaine subcutaneous anesthesia. A Slender Glidesheath sheath was inserted into [place] [address] CARDIAC CATH REPORT Name: MASOUD KRUEGER Room: [address] IN [facility]#: [id number] Admission: 01/04/20 Attend Phys: Kat hays [place] Discharge: Date of : 73 Report #: [id number] Coronary angiography was performed using coronary diagnostic catheters. The right coronary system was accessed and visualized with a Diagnostic 6 Fr JR 4 catheter. The left coronary system was accessed and visualized with a Diagnostic 6 Fr JL 4 catheter. The left ventricle was accessed and visualized with a Diagnostic 6 Fr Pigtail catheter. Left ventricular/Aortic Valve gradient assessed via catheter pullback. Left ventriculogram was performed in MURCIA projection. Closure device was deployed with a 6 Fr Vasc-Band Reg 24cm. The patient tolerated the procedure well and there were no complications associated with the procedure. There was no hematoma. Intraoperative Conscious Sedation Sedation start time: 15:33 Case end Time: 16:20 Fentanyl 100 mcg Versed 3 mg Fluoro Time: 5.9 minutes Dose: DAP 67158 cGycm2 1054 mGy Contrast Type and Amount: Omnipaque 200 ml Coronary Angiography The patient's coronary anatomy is right dominant. Diagnostic Cath Left Main 0% stenosis LAD 30% proximal, stent in mid lad with 40% restenosis, apical lad had a narrow lumen with a 60% distal stenosis Circumflex 30% distal stenosis OM2 stent with 0% stenosis Right Coronary proximal stent with 0% stenosis Ramus small vessel with 90% proximal stenosis Left Ventriculography The left ventricular ejection fraction is estimated to be 35-40%. Left ventricular wall motion abnormalities are present. There is no mitral insufficiency. moderate hypokinesis of the inferior wall and distal anteroapical wall Hemodynamics The aortic pressure is 96/50 mmHg with a mean of 69 mmHg. The left ventricular pressure is 103/10 mmHg with a mean of mmHg. The left ventricular end diastolic pressure is 12 mmHg. There was no gradient across the aortic valve upon pullback. Pullback from the left ventricle to the aorta revealed no gradient [place] [address] CARDIAC CATH REPORT Name: MASOUD KRUEGER Room: [address] IN [facility]#: [id number] Admission: 01/04/20 Attend Phys: Kat Davidson Discharge: Date of : 73 Report #: [id number] PCI Technique Lesion Anticoagulation was achieved with Heparin. Patient was preloaded with Effient. Percutaneous coronary intervention was performed on the ramus intermedius segment. The lesion stenosis prior to intervention was 90% with ANNE 3 flow. A 6FR XB 3.0 100CM Guide Catheter was used to engage the left ostium. A IG: BMW 190cm Interventional Guidewire was used to cross the lesion. BALLOON DILATION A Balloon catheter Euphora SC 2.0x12mm was inserted and inflated up to 9.00atm for 13seconds. Repeat angiography revealed the following post-dilatation results: 30% stenosis. Additional Inflation: 9.00atm for 22seconds. STENT DEPLOYMENT A drug-eluting stent [place] RX Stent 2.0X18mm was inserted and inflated up to 8.00atm for 10seconds. Repeat angiography revealed the following post-stent deployment results: 0% stenosis. Additional Inflation: 8.00atm for 19seconds. Final angiography reveals 0 % stenosis with ANNE 3 flow. Conclusion 1. no restenosis noted of stents in the lad, circumflex, and rca 2. 90% proximal stenosis in the ramus intermedius branch 3. LVEF 35-40% 4. successful placement of a drug eluting stent in the ramus branch Recommendations Cardiac Rehabilitation Referral [facility] <ELECTRONICALLY SIGNED> By: Celestino Camp MD, FACC 01/06/20 1724 1724 1724Djarrett Camp MD, FACC /INF
--- NOTE | 2020-01-06 18:23 | NUR ---
NO ACUTE CHANGES THROUGHOUT SHIFT, PT HAD CATH PROCEDURE DONE. RT RADIAL CATH SITE C/D/I W/ PRESSURE TRANSPARENT DRESSING IN PLACE. VS CHARTED, MEDS PER AUG, PT C/O HEADACHE TREATED W/ PRN TYLENOL, CALL LIGHT W/IN REACH, WILL CONTINUE POC.
[2020-01-07] VITALS: BP 109/52
--- NOTE | 2020-01-07 03:46 | NUR ---
PT ALERT ORIENTED. R RADIAL WITH RAD STAT IN PLACE WITH 8MLS. RELEASED PER PROTOCAL. R RADIAL DRSG APPLIED. PT REMINDED NOT TO USE R ARM/WRIST. DRSG D/I. PT TOLD TO CALL NURSE FOR ANY BLEEDING. TELEMETRY SHOWS SB. LORAZEPAM GIVEN HS. WCTM
[2020-01-07 04:00] VITALS: BP 95/48
[2020-01-07 05:33] LABS: HEMATOCRIT 38.9 % (37.0-47.0); HEMOGLOBIN 13.6 gm/dL (12.0-15.0); MCH 32.1 pg (26.0-34.0); MCHC 34.8 g/dL (28.0-37.0); MPV 8.7 fl. (7.2-11.1); RBC 4.23 mil/uL (4.20-5.00); RDW-CV 12.7 % (10.5-14.5); WBC 6.8 thou/uL (4.0-11.0)
[2020-01-07 05:55] LABS: CALCIUM 8.6 mg/dL (8.5-10.1); CREATININE 0.8 mg/dL (0.6-1.3); POTASSIUM 4.1 mmol/L (3.5-5.1)
[2020-01-07 05:58] LABS: TROPONIN-I LEVEL 1.18 ng/mL (<0.06)
[2020-01-07 07:20] VITALS: BP 100/64
[2020-01-07 10:03] VITALS: BP 95/48
[2020-01-07 12:00] VITALS: BP 110/61
--- NOTE | 2020-01-07 13:18 | EKG ---
[place] [address] ELECTROCARDIOGRAM REPORT Name: MASOUD KRUEGER Room: [address] ADM IN .R.#: [id number] Admission: 01/04/20 Attend Phys: Kat hays [place] Discharge: Date of : 73 Date of Service: 01/06/20 1706 Report #: [id number] THIS REPORT FOR: //name// [facility] Test Date: 2020-01-06 Test Time: 17:06:59 Pat Name: MASOUD KRUEGER Department: Room: [address] Gender: F Outside Laborer: TAYLOR : 1975 Requested By: Celestino Camp Order Number: [id number] Ryan MD: Celestino Camp Measurements Intervals [place] Rate: 49 P: 51 WA: 143 QRS: 21 QRSD: 93 T: 54 QT: 432 QTc: 390 Interpretive Statements Sinus bradycardia nonspecific t wave changes Borderline low voltage, extremity leads Compared to ECG 01/05/2020 05:34:45 no change Electronically Signed On 01-07-2020 13:18:44 CDT by Celestino Camp [email or web address] <ELECTRONICALLY SIGNED> By: Celestino Camp MD, [facility] 01/07/20 1318 1706 1706 Celestino Camp MD, [facility] /EPI
--- NOTE | 2020-01-07 14:26 | EKG ---
[place] [address] ELECTROCARDIOGRAM REPORT Name: SILVINAREBECCAMASOUD Room: [address] DIS IN M.R.#: [id number] Admission: 01/04/20 Attend Phys: Kat hays [place] Discharge: 01/07/20 Date of : 73 Date of Service: 01/07/20 0755 Report #: [id number] THIS REPORT FOR: //name// [facility] Test Date: 2020-01-07 Test Time: 07:55:37 Pat Name: MASOUD KRUEGER Department: Room: [address] Gender: F Senior Manager Creative Services: JACQUELINE : 1975 Requested By: Celestino Camp Order Number: [id number] Ryan MD: Celestino Camp Measurements Intervals [place] Rate: 56 P: 70 [place]: 145 QRS: 55 QRSD: 100 T: 71 QT: 413 QTc: 399 Interpretive Statements Sinus bradycardia Borderline low voltage, extremity leads Compared to ECG 01/05/2020 05:34:45 no change Electronically Signed On 01-07-2020 14:26:06 CDT by Celestino Camp [email or web address] <ELECTRONICALLY SIGNED> By: Celestino Camp MD, [facility] 01/07/20 1426 0755 0755 Celestino Camp MD, [facility] /EPI
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
== END 2020-01-07 14:23 | disposition home or self-care (01) | DRG 246 ==
LOC: M.ERS 09:24 → M.TBA-ER 10:01 → M.2W 10:01
PROVIDERS: Family Medicine; Internal Medicine Cardiovascular Disease; ADMIT Family Medicine; ATTEND Family Medicine
PROC: 027034Z Dilation of Coronary Artery, One Artery with Drug-eluting Intraluminal Device, Percutaneous Approach (ICD-10-PCS; principal; 2020-01-06)
PROC: 4A023N7 Measurement of Cardiac Sampling and Pressure, Left Heart, Percutaneous Approach (ICD-10-PCS; principal; 2020-01-06)
PROC: B2151ZZ Fluoroscopy of Left Heart using Low Osmolar Contrast (ICD-10-PCS; principal; 2020-01-06)
PROC: B2111ZZ Fluoroscopy of Multiple Coronary Arteries using Low Osmolar Contrast (ICD-10-PCS; principal; 2020-01-06)
DX: I21.4 Non-ST elevation (NSTEMI) myocardial infarction (principal); E43 Unspecified severe protein-calorie malnutrition; I50.22 Chronic systolic (congestive) heart failure; I25.10 Atherosclerotic heart disease of native coronary artery without angina pectoris; I25.5 Ischemic cardiomyopathy; F41.1 Generalized anxiety disorder; G89.29 Other chronic pain; M54.9 Dorsalgia, unspecified; E78.5 Hyperlipidemia, unspecified; Z20.828 Contact with and (suspected) exposure to other viral communicable diseases; Z82.49 Family history of ischemic heart disease and other diseases of the circulatory system; I25.2 Old myocardial infarction; Z95.5 Presence of coronary angioplasty implant and graft; Z88.6 Allergy status to analgesic agent; Z68.22 Body mass index [BMI] 22.0-22.9, adult